=== PATIENT | female | born 1955 | race Caucasian/White ===

== ENCOUNTER 2021-11-09 20:51 | Inpatient (IN) ==
[2021-11-09] MEDS ORDERED: Budesonide/Formoterol 160/4.5 1 PUFF INH IH PRN (21:38)
[2021-11-09] MEDS: tiZANidine 4 MG TABLET PO PRN (22:22)
[2021-11-09] MEDS: Melatonin 3 MG TABLET PO PRN (22:22)
[2021-11-09] MEDS: hydrOXYzine pamoate 25 MG CAPSULE PO SCH (22:22)
[2021-11-09] MEDS: Pregabalin 50 MG CAPSULE PO SCH (22:22)
[2021-11-10] MEDS: *HR* Enoxaparin 40 MG/0.4 ML SYRINGE SQ SCH (04:03)
[2021-11-10 05:39] LABS: Basophils # 0.1 K/mcL (0.0-0.2); Basophils % 0.8 %; Eosinophils # 0.3 K/mcL (0.0-0.6); Eosinophils % 4.1 %; Hematocrit 28.1 % (35.3-44.9); Hemoglobin 9.3 g/dL (11.5-15.4); Immature Granulocytes % 0.2 % (0-4); Lymphocytes % 32.6 %; Mean Corpuscular HGB Conc 33.1 g/dL (31.6-35.5); Mean Corpuscular Hemoglobin 31.3 pg (28.0-33.3); Mean Corpuscular Volume 94.6 fL (83.0-100.0); Mean Platelet Volume 11.4 fL (9.4-12.4); Monocytes # 0.5 K/mcL (0.0-1.3); Monocytes % 8.6 %; Neutrophils # 3.3 K/mcL (1.6-8.9); Platelet Count 201 K/mcL (140-400); Red Blood Count 2.97 M/mcL (3.82-4.97); Red Cell Distribution Width 14.1 % (11.5-14.5); Segmented Neutrophils % 53.7 %; White Blood Count 6.1 K/mcL (4.3-11.1)
[2021-11-10 05:58] LABS: Calcium 9.9 mg/dL (8.6-10.3); Potassium 3.7 mEq/L (3.5-5.1)
[2021-11-10] MEDS: Pregabalin 50 MG CAPSULE PO SCH ×2 (08:09→20:51)
[2021-11-10] MEDS: hydrALAZINE 25 MG TABLET PO SCH ×3 (08:10→20:51)
[2021-11-10] MEDS: EMPAGLIFLOZIN 10 MG PO SCH (08:10)
[2021-11-10] MEDS: Bumetanide 1 MG TABLET PO SCH (08:10)
[2021-11-10] MEDS: Aspirin Enteric Coated 81 MG Tablet PO SCH (08:10)
[2021-11-10] MEDS: tiZANidine 4 MG TABLET PO PRN ×2 (08:10→20:51)
[2021-11-10] MEDS ORDERED: NON-FORMULARY MEDICATION 1 EACH EACH (Diclofenac Sodium [Voltaren] 100 GM Gel..Gram.) TP SCH (09:00)
[2021-11-10] MEDS ORDERED: Metoprolol XL (24 HR) Succ 50 MG TAB.ER.24H PO SCH (09:00)
[2021-11-10] MEDS: Melatonin 3 MG TABLET PO PRN (20:50)
[2021-11-10] MEDS: hydrOXYzine pamoate 25 MG CAPSULE PO SCH (20:51)
[2021-11-11] MEDS: *HR* Enoxaparin 40 MG/0.4 ML SYRINGE SQ SCH (05:00)
[2021-11-11] MEDS: Bumetanide 1 MG TABLET PO SCH (08:01)
[2021-11-11] MEDS: hydrALAZINE 25 MG TABLET PO SCH ×3 (08:01→21:00)
[2021-11-11] MEDS: EMPAGLIFLOZIN 10 MG PO SCH (08:02)
[2021-11-11] MEDS: tiZANidine 4 MG TABLET PO PRN ×2 (08:02→21:00)
[2021-11-11] MEDS: Aspirin Enteric Coated 81 MG Tablet PO SCH (08:02)
[2021-11-11] MEDS: Pregabalin 50 MG CAPSULE PO SCH ×2 (08:02→20:59)
[2021-11-11] MEDS ORDERED: MOM Conc 10 ML UD.LIQ PO PRN (09:01)
[2021-11-11] MEDS ORDERED: Bisacodyl 10 MG RECTAL SUPPOSITORY RC PRN (09:01)
[2021-11-11] MEDS ORDERED: *HR* HYDROcodone/Acet 10/325 mg TABLET PO PRN (10:26)
[2021-11-11] MEDS: *HR* HYDROcodone/Acet 5/325 mg TABLET PO PRN (11:11)
[2021-11-11] MEDS: polyethylene glycoL 3350 17 GM POWD.PACK PO SCH (11:13)
[2021-11-11] MEDS: Sennosides/Docusate Sodium TABLET PO SCH ×2 (11:13→21:00)
[2021-11-11] MEDS: hydrOXYzine pamoate 25 MG CAPSULE PO SCH (20:59)
[2021-11-11] MEDS: Melatonin 3 MG TABLET PO PRN (20:59)
[2021-11-11] MEDS: traZODone 50 MG TABLET PO PRN (21:00)
[2021-11-12] MEDS: *HR* Enoxaparin 40 MG/0.4 ML SYRINGE SQ SCH (04:40)
[2021-11-12] MEDS: Bumetanide 1 MG TABLET PO SCH (08:25)
[2021-11-12] MEDS: Pregabalin 50 MG CAPSULE PO SCH ×2 (08:26→20:40)
[2021-11-12] MEDS: hydrALAZINE 25 MG TABLET PO SCH ×3 (08:26→20:39)
[2021-11-12] MEDS: Aspirin Enteric Coated 81 MG Tablet PO SCH (08:26)
[2021-11-12] MEDS: Sennosides/Docusate Sodium TABLET PO SCH ×2 (08:26→20:41)
[2021-11-12] MEDS: polyethylene glycoL 3350 17 GM POWD.PACK PO SCH (08:26)
[2021-11-12] MEDS: EMPAGLIFLOZIN 10 MG PO SCH (08:38)
[2021-11-12] MEDS: Melatonin 3 MG TABLET PO PRN (20:39)
[2021-11-12] MEDS: traZODone 50 MG TABLET PO PRN (20:40)
[2021-11-12] MEDS: hydrOXYzine pamoate 25 MG CAPSULE PO SCH (20:41)
[2021-11-12] MEDS: tiZANidine 4 MG TABLET PO PRN (20:41)
[2021-11-13] MEDS: *HR* Enoxaparin 40 MG/0.4 ML SYRINGE SQ SCH (05:21)
[2021-11-13 06:19] LABS: Hematocrit 28.1 % (35.3-44.9); Hemoglobin 9.2 g/dL (11.5-15.4); Mean Corpuscular HGB Conc 32.7 g/dL (31.6-35.5); Mean Corpuscular Hemoglobin 31.2 pg (28.0-33.3); Mean Corpuscular Volume 95.3 fL (83.0-100.0); Mean Platelet Volume 11.9 fL (9.4-12.4); Platelet Count 201 K/mcL (140-400); Red Blood Count 2.95 M/mcL (3.82-4.97); Red Cell Distribution Width 14.3 % (11.5-14.5); White Blood Count 6.5 K/mcL (4.3-11.1)
[2021-11-13 06:29] LABS: Calcium 9.6 mg/dL (8.6-10.3); Magnesium 1.5 mg/dL (1.6-2.6); Potassium 3.8 mEq/L (3.5-5.1)
[2021-11-13] MEDS: Bumetanide 1 MG TABLET PO SCH (08:03)
[2021-11-13] MEDS: polyethylene glycoL 3350 17 GM POWD.PACK PO SCH (08:03)
[2021-11-13] MEDS: Pregabalin 50 MG CAPSULE PO SCH ×2 (08:03→19:42)
[2021-11-13] MEDS: Sennosides/Docusate Sodium TABLET PO SCH ×2 (08:03→19:43)
[2021-11-13] MEDS: Aspirin Enteric Coated 81 MG Tablet PO SCH (08:04)
[2021-11-13] MEDS: hydrALAZINE 25 MG TABLET PO SCH ×3 (08:04→19:42)
[2021-11-13] MEDS: EMPAGLIFLOZIN 10 MG PO SCH (08:06)
[2021-11-13] MEDS: Ergocalciferol (VIT D2) 50,000 UNIT (1.25MG) CAP PO SCH (08:12)
[2021-11-13] MEDS ORDERED: D5% in Water 1,000 ML IVC PRN (14:14)
[2021-11-13] MEDS ORDERED: *HR* Dextrose 50 % in Water (Syg) 50 ML SYRINGE IVP PRN (14:14)
[2021-11-13] MEDS ORDERED: Dextrose Gel 15 GM/37.5 ML TUBE PO PRN ×2 (14:14)
[2021-11-13] MEDS: Insulin LISPRO 300 UNITS/3 ML VIAL SUBQ SCH ×2 (16:28→20:59)
[2021-11-13] MEDS: traZODone 50 MG TABLET PO PRN (19:43)
[2021-11-13] MEDS: *HR* HYDROcodone/Acet 5/325 mg TABLET PO PRN (19:43)
[2021-11-13] MEDS: hydrOXYzine pamoate 25 MG CAPSULE PO SCH (19:43)
[2021-11-13] MEDS: tiZANidine 4 MG TABLET PO PRN (19:43)
[2021-11-13] MEDS: Magnesium Oxide 400 MG TABLET PO SCH (21:30)
[2021-11-14] MEDS: *HR* Enoxaparin 40 MG/0.4 ML SYRINGE SQ SCH (05:05)
[2021-11-14] MEDS: Insulin LISPRO 300 UNITS/3 ML VIAL SUBQ SCH ×4 (07:35→20:50)
[2021-11-14] MEDS: Sennosides/Docusate Sodium TABLET PO SCH ×2 (10:13→20:49)
[2021-11-14] MEDS: Aspirin Enteric Coated 81 MG Tablet PO SCH (10:14)
[2021-11-14] MEDS: Magnesium Oxide 400 MG TABLET PO SCH ×2 (10:14→20:49)
[2021-11-14] MEDS: Bumetanide 1 MG TABLET PO SCH (10:14)
[2021-11-14] MEDS: hydrALAZINE 25 MG TABLET PO SCH ×3 (10:14→20:48)
[2021-11-14] MEDS: polyethylene glycoL 3350 17 GM POWD.PACK PO SCH (10:14)
[2021-11-14] MEDS: Pregabalin 50 MG CAPSULE PO SCH ×2 (10:14→20:49)
[2021-11-14] MEDS: EMPAGLIFLOZIN 10 MG PO SCH (10:18)
[2021-11-14] MEDS: traZODone 50 MG TABLET PO PRN (20:48)
[2021-11-14] MEDS: *HR* HYDROcodone/Acet 5/325 mg TABLET PO PRN (20:49)
[2021-11-14] MEDS: hydrOXYzine pamoate 25 MG CAPSULE PO SCH (20:49)
[2021-11-15 04:50] LABS: Hematocrit 27.3 % (35.3-44.9); Mean Corpuscular Hemoglobin 31.5 pg (28.0-33.3); Mean Corpuscular Volume 95.5 fL (83.0-100.0); Mean Platelet Volume 11.7 fL (9.4-12.4); Platelet Count 214 K/mcL (140-400); Red Blood Count 2.86 M/mcL (3.82-4.97); Red Cell Distribution Width 14.3 % (11.5-14.5); White Blood Count 7.7 K/mcL (4.3-11.1)
[2021-11-15 05:06] LABS: Calcium 9.5 mg/dL (8.6-10.3); Magnesium 1.9 mg/dL (1.6-2.6)
[2021-11-15] MEDS: *HR* Enoxaparin 40 MG/0.4 ML SYRINGE SQ SCH (06:20)
[2021-11-15] MEDS: Insulin LISPRO 300 UNITS/3 ML VIAL SUBQ SCH ×4 (08:15→21:11)
[2021-11-15] MEDS: polyethylene glycoL 3350 17 GM POWD.PACK PO SCH (08:22)
[2021-11-15] MEDS: hydrALAZINE 25 MG TABLET PO SCH ×3 (08:22→21:06)
[2021-11-15] MEDS: Magnesium Oxide 400 MG TABLET PO SCH ×2 (08:24→21:06)
[2021-11-15] MEDS: Bumetanide 1 MG TABLET PO SCH (08:24)
[2021-11-15] MEDS: Pregabalin 50 MG CAPSULE PO SCH ×2 (08:25→21:07)
[2021-11-15] MEDS: Sennosides/Docusate Sodium TABLET PO SCH ×2 (08:25→21:06)
[2021-11-15] MEDS: Aspirin Enteric Coated 81 MG Tablet PO SCH (08:25)
[2021-11-15] MEDS: *HR* HYDROcodone/Acet 5/325 mg TABLET PO PRN (08:29)
[2021-11-15] MEDS: EMPAGLIFLOZIN 10 MG PO SCH (16:23)
[2021-11-15] MEDS: hydrOXYzine pamoate 25 MG CAPSULE PO SCH (21:06)
[2021-11-15] MEDS: traZODone 50 MG TABLET PO PRN (21:06)
[2021-11-15] MEDS: Melatonin 3 MG TABLET PO PRN (21:06)
[2021-11-16] MEDS: *HR* Enoxaparin 40 MG/0.4 ML SYRINGE SQ SCH (06:10)
[2021-11-16] MEDS: Insulin LISPRO 300 UNITS/3 ML VIAL SUBQ SCH ×4 (07:55→20:39)
[2021-11-16] MEDS: Pregabalin 50 MG CAPSULE PO SCH ×2 (08:00→20:41)
[2021-11-16] MEDS: Sennosides/Docusate Sodium TABLET PO SCH ×2 (08:00→20:41)
[2021-11-16] MEDS: Aspirin Enteric Coated 81 MG Tablet PO SCH (08:00)
[2021-11-16] MEDS: *HR* HYDROcodone/Acet 5/325 mg TABLET PO PRN (08:01)
[2021-11-16] MEDS: hydrALAZINE 25 MG TABLET PO SCH ×3 (08:01→20:42)
[2021-11-16] MEDS: Magnesium Oxide 400 MG TABLET PO SCH ×2 (08:01→20:42)
[2021-11-16] MEDS: polyethylene glycoL 3350 17 GM POWD.PACK PO SCH (08:01)
[2021-11-16] MEDS: Bumetanide 1 MG TABLET PO SCH (08:01)
[2021-11-16] MEDS: EMPAGLIFLOZIN 10 MG PO SCH (08:03)
[2021-11-16] MEDS: Melatonin 3 MG TABLET PO PRN (20:40)
[2021-11-16] MEDS: traZODone 50 MG TABLET PO PRN (20:41)
[2021-11-16] MEDS: hydrOXYzine pamoate 25 MG CAPSULE PO SCH (20:41)
[2021-11-17] MEDS: *HR* Enoxaparin 40 MG/0.4 ML SYRINGE SQ SCH (05:26)
[2021-11-17] MEDS: Insulin LISPRO 300 UNITS/3 ML VIAL SUBQ SCH ×4 (07:44→19:23)
[2021-11-17] MEDS: Sennosides/Docusate Sodium TABLET PO SCH ×2 (08:46→19:34)
[2021-11-17] MEDS: Bumetanide 1 MG TABLET PO SCH (08:46)
[2021-11-17] MEDS: Pregabalin 50 MG CAPSULE PO SCH ×2 (08:47→21:25)
[2021-11-17] MEDS: Aspirin Enteric Coated 81 MG Tablet PO SCH (08:47)
[2021-11-17] MEDS: Magnesium Oxide 400 MG TABLET PO SCH ×2 (08:47→19:35)
[2021-11-17] MEDS: polyethylene glycoL 3350 17 GM POWD.PACK PO SCH (08:47)
[2021-11-17] MEDS: hydrALAZINE 25 MG TABLET PO SCH ×3 (08:47→19:34)
[2021-11-17] MEDS: *HR* HYDROcodone/Acet 5/325 mg TABLET PO PRN (08:52)
[2021-11-17] MEDS: EMPAGLIFLOZIN 10 MG PO SCH (09:19)
[2021-11-17] MEDS: hydrOXYzine pamoate 25 MG CAPSULE PO SCH (19:35)
[2021-11-17] MEDS: traZODone 50 MG TABLET PO PRN (21:26)
[2021-11-17] MEDS: Melatonin 3 MG TABLET PO PRN (21:26)
[2021-11-18] MEDS: *HR* Enoxaparin 40 MG/0.4 ML SYRINGE SQ SCH (05:03)
[2021-11-18] MEDS: Insulin LISPRO 300 UNITS/3 ML VIAL SUBQ SCH ×4 (07:30→22:52)
[2021-11-18] MEDS: polyethylene glycoL 3350 17 GM POWD.PACK PO SCH ×2 (07:32→22:54)
[2021-11-18] MEDS: *HR* HYDROcodone/Acet 5/325 mg TABLET PO PRN (07:32)
[2021-11-18] MEDS: Bumetanide 1 MG TABLET PO SCH (07:32)
[2021-11-18] MEDS: Sennosides/Docusate Sodium TABLET PO SCH ×2 (07:33→21:57)
[2021-11-18] MEDS: Aspirin Enteric Coated 81 MG Tablet PO SCH (07:33)
[2021-11-18] MEDS: Pregabalin 50 MG CAPSULE PO SCH ×2 (07:33→21:57)
[2021-11-18] MEDS: EMPAGLIFLOZIN 10 MG PO SCH (07:33)
[2021-11-18] MEDS: hydrALAZINE 25 MG TABLET PO SCH ×3 (07:33→21:57)
[2021-11-18] MEDS: Magnesium Oxide 400 MG TABLET PO SCH ×2 (07:33→21:57)
[2021-11-18 11:20] LABS: Calcium 9.7 mg/dL (8.6-10.3); Potassium 4.3 mEq/L (3.5-5.1)
[2021-11-18] MEDS: 0.9 % Sodium Chloride 1,000 ML IVC SCH (15:14)
[2021-11-18] MEDS: hydrOXYzine pamoate 25 MG CAPSULE PO SCH (21:57)
[2021-11-18] MEDS: traZODone 50 MG TABLET PO PRN (21:58)
[2021-11-18] MEDS: tiZANidine 4 MG TABLET PO PRN (21:58)
[2021-11-18] MEDS: Bisacodyl 10 MG RECTAL SUPPOSITORY RC SCH (22:53)
[2021-11-18] MEDS: Lactulose Oral Soln 20 GM/30 ML UDC PO SCH (22:53)
[2021-11-19] MEDS: 0.9 % Sodium Chloride 1,000 ML IVC SCH ×2 (03:21→15:22)
[2021-11-19 05:06] LABS: Calcium 9.7 mg/dL (8.6-10.3); Magnesium 2.5 mg/dL (1.6-2.6); Potassium 4.2 mEq/L (3.5-5.1)
[2021-11-19] MEDS: *HR* Enoxaparin 40 MG/0.4 ML SYRINGE SQ SCH (05:26)
[2021-11-19] MEDS: polyethylene glycoL 3350 17 GM POWD.PACK PO SCH ×2 (08:04→21:26)
[2021-11-19] MEDS: Lactulose Oral Soln 20 GM/30 ML UDC PO SCH ×2 (08:04→21:26)
[2021-11-19] MEDS: Aspirin Enteric Coated 81 MG Tablet PO SCH (08:05)
[2021-11-19] MEDS: Pregabalin 50 MG CAPSULE PO SCH ×2 (08:05→21:24)
[2021-11-19] MEDS: Magnesium Oxide 400 MG TABLET PO SCH ×2 (08:05→21:25)
[2021-11-19] MEDS: Sennosides/Docusate Sodium TABLET PO SCH ×2 (08:05→21:24)
[2021-11-19] MEDS: hydrALAZINE 25 MG TABLET PO SCH ×3 (08:05→21:24)
[2021-11-19] MEDS: *HR* HYDROcodone/Acet 5/325 mg TABLET PO PRN ×2 (08:05→15:20)
[2021-11-19] MEDS: EMPAGLIFLOZIN 10 MG PO SCH (08:06)
[2021-11-19] MEDS: Insulin LISPRO 300 UNITS/3 ML VIAL SUBQ SCH ×4 (08:06→21:25)
[2021-11-19] MEDS: tiZANidine 4 MG TABLET PO PRN (15:20)
[2021-11-19] MEDS: Melatonin 3 MG TABLET PO PRN (21:24)
[2021-11-19] MEDS: hydrOXYzine pamoate 25 MG CAPSULE PO SCH (21:24)
[2021-11-19] MEDS: Bisacodyl 10 MG RECTAL SUPPOSITORY RC SCH (21:25)
[2021-11-19] MEDS: traZODone 50 MG TABLET PO PRN (21:25)
[2021-11-20 04:52] LABS: Basophils % 0.6 %; Eosinophils # 0.2 K/mcL (0.0-0.6); Eosinophils % 2.2 %; Hemoglobin 8.7 g/dL (11.5-15.4); Immature Granulocytes % 0.3 % (0-4); Lymphocytes # 2.7 K/mcL (0.6-4.6); Lymphocytes % 37.1 %; Mean Corpuscular HGB Conc 32.2 g/dL (31.6-35.5); Mean Corpuscular Hemoglobin 31.4 pg (28.0-33.3); Mean Corpuscular Volume 97.5 fL (83.0-100.0); Monocytes # 0.7 K/mcL (0.0-1.3); Monocytes % 9.6 %; Neutrophils # 3.6 K/mcL (1.6-8.9); Platelet Count 208 K/mcL (140-400); Red Blood Count 2.77 M/mcL (3.82-4.97); Red Cell Distribution Width 14.5 % (11.5-14.5); Segmented Neutrophils % 50.2 %; White Blood Count 7.2 K/mcL (4.3-11.1)
[2021-11-20 05:09] LABS: Calcium 9.3 mg/dL (8.6-10.3); Potassium 4.3 mEq/L (3.5-5.1)
[2021-11-20] MEDS: 0.9 % Sodium Chloride 1,000 ML IVC SCH (06:06)
[2021-11-20] MEDS: *HR* Enoxaparin 40 MG/0.4 ML SYRINGE SQ SCH (06:08)
[2021-11-20 07:01] VITALS: BP 115/58; PULSE 57; RESP 15; TEMP 97.8; O2SAT 95
[2021-11-20] MEDS: Insulin LISPRO 300 UNITS/3 ML VIAL SUBQ SCH ×2 (07:14→12:55)
[2021-11-20] MEDS: tiZANidine 4 MG TABLET PO PRN (07:14)
[2021-11-20] MEDS: Magnesium Oxide 400 MG TABLET PO SCH (07:15)
[2021-11-20] MEDS: Aspirin Enteric Coated 81 MG Tablet PO SCH (07:15)
[2021-11-20] MEDS: hydrALAZINE 25 MG TABLET PO SCH (07:15)
[2021-11-20] MEDS: Pregabalin 50 MG CAPSULE PO SCH (07:15)
[2021-11-20] MEDS: Sennosides/Docusate Sodium TABLET PO SCH (07:15)
[2021-11-20] MEDS: Lactulose Oral Soln 20 GM/30 ML UDC PO SCH (07:16)
[2021-11-20] MEDS: Ergocalciferol (VIT D2) 50,000 UNIT (1.25MG) CAP PO SCH (07:23)
[2021-11-20] MEDS: polyethylene glycoL 3350 17 GM POWD.PACK PO SCH (09:53)
[2021-11-20] MEDS: EMPAGLIFLOZIN 10 MG PO SCH (09:54)
== END 2021-11-20 13:35 | disposition home health service (06) | DRG 682 ==
LOC: INPGRE 20:52
PROVIDERS: ADMIT Family Medicine; ATTEND Family Medicine

== ENCOUNTER 2021-11-22 16:15 | Observation (INO) ==
[2021-11-22 17:09] LABS: Bilirubin,Urine Negative (Negative); Blood,Urine Negative (Negative); Clarity,Urine Clear (Clear); Color,Urine Yellow (Yellow); Glucose,Urine (UA) >=1000 mg/dL (Normal); Ketones,Urine Negative (Negative); Leukocyte Esterase,Urine Negative (Negative); Nitrite,Urine Negative (Negative); Protein,Urine Negative (Neg-Trace); Specific Gravity,Urine 1.015 (1.010-1.025); Urobilinogen,Urine Normal (Normal)
[2021-11-22 17:20] LABS: Basophils % 0.4 %; Eosinophils # 0.1 K/mcL (0.0-0.6); Eosinophils % 0.7 %; Hematocrit 34.4 % (35.3-44.9); Hemoglobin 11.1 g/dL (11.5-15.4); Immature Granulocytes % 0.2 % (0-4); Lymphocytes # 2.1 K/mcL (0.6-4.6); Lymphocytes % 21.7 %; Mean Corpuscular HGB Conc 32.3 g/dL (31.6-35.5); Mean Corpuscular Hemoglobin 31.4 pg (28.0-33.3); Mean Corpuscular Volume 97.2 fL (83.0-100.0); Mean Platelet Volume 12.2 fL (9.4-12.4); Monocytes # 0.6 K/mcL (0.0-1.3); Monocytes % 6.6 %; Neutrophils # 6.7 K/mcL (1.6-8.9); Platelet Count 261 K/mcL (140-400); Red Blood Count 3.54 M/mcL (3.82-4.97); Red Cell Distribution Width 14.4 % (11.5-14.5); Segmented Neutrophils % 70.4 %; White Blood Count 9.5 K/mcL (4.3-11.1)
[2021-11-22 17:29] LABS: WBC,Urine 0-3 per hpf (0-3)
[2021-11-22 17:30] LABS: Calcium Oxalate Crystals,Urine Present per hpf
[2021-11-22 17:33] LABS: Calcium 10.4 mg/dL (8.6-10.3); Potassium 4.4 mEq/L (3.5-5.1)
[2021-11-22 17:37] LABS: Troponin I 0.04 ng/mL (< 0.04)
[2021-11-22] MEDS ORDERED: Acetaminophen 325 MG TABLET PO PRN (19:17)
[2021-11-22] MEDS ORDERED: Naloxone 0.4 MG/ML INJ IVP PRN (19:17)
[2021-11-22] MEDS ORDERED: Ondansetron 4 MG/2 ML VIAL IVP PRN (19:17)
[2021-11-22] MEDS ORDERED: Melatonin 3 MG TABLET PO PRN (19:21)
[2021-11-22] MEDS ORDERED: tiZANidine 4 MG TABLET PO PRN (19:21)
[2021-11-22] MEDS ORDERED: Budesonide/Formoterol 160/4.5 1 PUFF INH IH PRN (19:21)
[2021-11-22] MEDS ORDERED: Pregabalin 50 MG CAPSULE PO SCH (21:00)
[2021-11-23] MEDS: Sennosides/Docusate Sodium TABLET PO SCH ×2 (00:23→09:28)
[2021-11-23] MEDS: hydrALAZINE 25 MG TABLET PO SCH ×3 (00:23→17:09)
[2021-11-23 04:31] LABS: Hematocrit 35.7 % (35.3-44.9); Hemoglobin 11.6 g/dL (11.5-15.4); Mean Corpuscular HGB Conc 32.5 g/dL (31.6-35.5); Mean Corpuscular Hemoglobin 31.4 pg (28.0-33.3); Mean Corpuscular Volume 96.7 fL (83.0-100.0); Mean Platelet Volume 11.5 fL (9.4-12.4); Platelet Count 277 K/mcL (140-400); Red Blood Count 3.69 M/mcL (3.82-4.97); Red Cell Distribution Width 14.4 % (11.5-14.5); White Blood Count 10.7 K/mcL (4.3-11.1)
[2021-11-23 04:45] LABS: Albumin 3.8 g/dL (3.5-5.7); Albumin/Globulin Ratio 1.7 (1.1-2.2); Bilirubin,Total 0.6 mg/dL (0.3-1.0); Calcium 10.4 mg/dL (8.6-10.3); Chol/HDL Ratio 2.4 (0-4.9); Globulin 2.3 g/dL (2.4-3.5); Magnesium 2.6 mg/dL (1.6-2.6); Potassium 3.8 mEq/L (3.5-5.1); Total Protein 6.1 g/dL (6.4-8.9)
[2021-11-23 06:58] LABS: VBG HCO3 23 mEq/L (21-27); VBG PCO2 32 mmHg (41-51); VBG PH 7.46 pH Units (7.32-7.42); VBG PO2 116 mmHg (25-50)
[2021-11-23 08:16] LABS: Folate 14.1 ng/mL (3.0-16.0)
[2021-11-23] MEDS ORDERED: Aspirin Enteric Coated 81 MG Tablet PO SCH (09:00)
[2021-11-23] MEDS ORDERED: Bumetanide 1 MG TABLET PO SCH (09:00)
[2021-11-23] MEDS: *HR* Heparin 5,000 UNIT/ML VIAL SQ SCH ×2 (09:28→17:09)
[2021-11-23 11:35] VITALS: O2SAT 97
[2021-11-23 12:08] LABS: Amphetamine Screen,Urine Negative ng/mL (Cutoff=1000); Barbiturate Screen,Urine Negative ng/mL (Cutoff=200); Benzodiazepines Screen,Urine Negative ng/mL (Cutoff=200); Cannabinoid Screen,Urine Negative ng/mL (Cutoff = 50); Cocaine Screen,Urine Negative ng/mL (Cutoff= 300); Opiate Screen,Urine Negative ng/mL (Cutoff=300); Phencyclidine Screen,Urine Negative ng/mL (Cutoff=25)
[2021-11-23 16:32] VITALS: BP 150/69; PULSE 76; RESP 20; TEMP 98.2
[2021-11-27] MEDS ORDERED: Ergocalciferol (VIT D2) 50,000 UNIT (1.25MG) CAP PO SCH (09:00)
== END 2021-11-23 17:46 | disposition short-term general hospital (02) ==
LOC: INPGRE 16:15 → EMEROOGRE 16:15 → INPGRE 20:09
PROVIDERS: ADMIT Family Medicine; ATTEND Family Medicine